=== PATIENT | female | born 1965 | race Caucasian/White ===

== ENCOUNTER 2018-04-29 10:57 | Outpatient (CLI) | payer BC | END 2018-04-29 10:58 | disposition home or self-care (01) | LOC: BICMAMMO 10:57 | PROVIDERS: ATTEND Family Medicine | DX: Z12.31 Encounter for screening mammogram for malignant neoplasm of breast (principal); Z80.3 Family history of malignant neoplasm of breast; Z91.89 Other specified personal risk factors, not elsewhere classified | CPT/HCPCS: 77063; 77067 ==

== ENCOUNTER 2018-06-10 11:04 | Outpatient (CLI) | payer BC ==
--- NOTE | 2018-06-10 13:43 | ULT ---
LEFT BREAST ULTRASOUND: HISTORY: Ultrasound screening for dense breast tissue. FINDINGS: Real-time imaging of the left breast was performed. Heterogeneously dense breast parenchyma is seen. No cystic or solid mass. IMPRESSION: BI-RADS category 2-Benign findings. POS: OFF
--- NOTE | 2018-06-10 13:44 | ULT ---
RIGHT BREAST ULTRASOUND: Date: 06/10/18 HISTORY: Right breast screening. Patient has dense breast parenchyma. COMPARISON: Mammogram study dated 04/29/18. FINDINGS: Real-time imaging of the right breast failed to show any cystic or solid mass. IMPRESSION: BIRADS Category 2 - Benign findings. POS: OFF
== END 2018-06-10 11:05 | disposition home or self-care (01) ==
LOC: BICULT 11:04
PROVIDERS: ATTEND Family Medicine
DX: N60.19 Diffuse cystic mastopathy of unspecified breast (principal); N95.9 Unspecified menopausal and perimenopausal disorder; Z80.3 Family history of malignant neoplasm of breast

== ENCOUNTER 2020-06-09 08:05 | Outpatient (CLI) | payer BC ==
--- NOTE | 2020-06-09 09:21 | ULT ---
THYROID ULTRASOUND: INDICATION: History of thyroid goiter. FINDINGS: The right thyroid lobe measures 3.8 x 1.2 x 1.3 cm. The left measures 3.8 x 1.0 x 0.9 cm. Thyroid i sthmus measures 0.12 cm. There is a small TIRADS3 lesion within the left mid thyroid lobe measuring 4 mm. An additional small TIRADS3 lesion is seen involving the mid to lower aspect of the right mid kidney measuring 2 mm. IMPRESSION: No suspicious thyroid lesion identified. No sonographic followup is recommended. POS: [facility]
--- NOTE | 2020-06-09 09:24 | MMO ---
Bilateral MAMMO Bilat Screen [facility]. CLINICAL HISTORY: Patient is 55 years old and is seen for screening. The patient has the following family history of breast cancer: paternal grandmother, malignant (generic) and sister, malignant (generic). The patient has no personal history of cancer. The patient has a history of right Ultrasound Guided Core Biopsy in October,. VIEWS: The views performed were: bilateral craniocaudal with tomosynthesis and bilateral mediolateral oblique with tomosynthesis. FILMS COMPARED: The present examination has been compared to prior imaging studies performed at [facility] on 10/18/2011, 04/13/2014, 07/01/2015 and 04/29/2018. This study has been interpreted with the assistance of computer-aided detection. MAMMOGRAM FINDINGS: The breasts are extremely dense, which may lower the sensitivity of mammography. Right biopsy clip. There are no suspicious masses, suspicious calcifications, or new areas of architectural distortion. IMPRESSION: THERE IS NO MAMMOGRAPHIC EVIDENCE OF MALIGNANCY. A ROUTINE FOLLOW-UP MAMMOGRAM IN 1 YEAR IS RECOMMENDED. THE RESULTS OF THIS EXAM WERE SENT TO THE PATIENT. ACR BI-RADS Category 2 - Benign finding MAMMOGRAPHY NOTE: 1. A negative mammogram report should not delay a biopsy if a dominant of clinically suspicious mass is present. 2. Approximately 10% to 15% of breast cancers are not detected by mammography. 3. Adenosis and dense breasts may obscure an underlying neoplasm. Reported by: CELSO TRIPLETT MD Electonically Signed: [id number]
== END 2020-06-09 08:06 | disposition home or self-care (01) ==
LOC: BICULT 08:05
PROVIDERS: ATTEND Family Medicine
DX: Z12.31 Encounter for screening mammogram for malignant neoplasm of breast (principal); E04.9 Nontoxic goiter, unspecified; N60.19 Diffuse cystic mastopathy of unspecified breast; Z80.3 Family history of malignant neoplasm of breast
CPT/HCPCS: 76536; 77063; 77067